=== PATIENT | female | born 1990 | race Caucasian/White ===

== ENCOUNTER 2022-04-29 23:12 | Emergency (ER) | payer SELFPAY ==
[~2022-04-29] VITALS: Ht 162.6 cm; Wt 95.0 kg
[2022-04-29 23:31] VITALS: BP 158/98
== END 2022-04-30 03:59 | disposition left against medical advice (07) ==
LOC: ER 23:55
DX: Z53.21 Procedure and treatment not carried out due to patient leaving prior to being seen by health care provider (principal)